=== PATIENT | male | born 1980 | race Caucasian/White ===

== ENCOUNTER 2019-02-07 11:07 | Emergency (ER) | payer OTHER ==
[~2019-02-07] VITALS: Ht 160 cm; Wt 71.7 kg
[2019-02-07] MEDS ORDERED: LORA1SY PO (11:22)
[2019-02-07] MEDS ORDERED: LOSA50 PO (11:22)
[2019-02-07] MEDS ORDERED: Flonase 0.05% N16 GM (11:22)
[2019-02-07] MEDS ORDERED: ALBU90OI INH (11:22)
[2019-02-07 11:58] LABS: BASOPHILS ABSOLUTE AUTO 0.06 K/mm3 (0.00-0.23); BASOPHILS PERCENT AUTO 0 % (0-2); EOSINOPHILS PERCENT AUTO 0 % (0-6); Hematocrit 44.8 % (37.0-53.0); Hemoglobin 16.3 g/dL (13.5-17.5); IMMATURE GRAN ABSOLUTE AUTO 0.12 K/mm3 (0.00-0.10); IMMATURE GRAN PERCENT AUTO 1 % (0-1); LYMPHOCYTES ABSOLUTE AUTO 1.72 K/mm3 (0.84-5.20); LYMPHOCYTES PERCENT AUTO 7 % (21-46); MONOCYTES ABSOLUTE AUTO 1.91 K/mm3 (0.16-1.47); MONOCYTES PERCENT AUTO 8 % (4-13); Mean Corpuscular HGB 30.8 pg (26.0-34.0); Mean Corpuscular HGB Conc 36.4 g/dL (31.5-36.5); Mean Corpuscular Volume 85 fL (80-100); Mean Platelet Volume 9.4 fL (9.1-12.4); NEUTROPHILS ABSOLUTE AUTO 19.67 K/mm3 (1.96-9.15); NEUTROPHILS PERCENT AUTO 84 % (41-73); Platelet Count 323 K/mm3 (150-400); RDW Coefficient Variation 11.6 % (11.7-14.2); RDW Standard Deviation 35.6 fL (35.1-46.3); White Blood Cell Count 23.48 K/mm3 (4.00-11.30)
[2019-02-07 12:17] LABS: Alanine Aminotransfer (ALT/SGP 25 U/L (12-78); Albumin, Blood 3.8 g/dL (3.4-5.0); Albumin/Globulin Ratio 0.8 (0.8-1.8); Alk Phos 106 U/L (50-136); Anion Gap 9 mmol/L (6-16); Aspartate Aminotrans (AST/SGOT 24 U/L (12-37); Bilirubin, Total 0.7 mg/dL (0.1-1.0); Blood Urea Nitrogen 11 mg/dL (8-24); Bun/Creatinine Ratio 12.8 (12.0-20.0); CO2, Blood 24 mmol/L (21-32); Calcium, Blood 9.7 mg/dL (8.5-10.1); Chloride, Blood 106 mmol/L (98-108); Creatinine, Blood 0.86 mg/dL (0.60-1.20); Globulin, Blood 4.9 g/dL (2.2-4.0); Glomerular Filtration Rate >60 (60-); Glucose, Blood 116 mg/dL (70-99); Potassium, Blood 3.5 mmol/L (3.5-5.5); Sodium, Blood 139 mmol/L (136-145); Total Protein, Blood 8.7 g/dL (6.4-8.2)
[2019-02-07] MEDS ORDERED: CEFP200 PO (13:04)
[2019-02-07] MEDS ORDERED: ALBU2.5V5 NEB (13:04)
== END 2019-02-07 13:09 | disposition home or self-care (01) ==
LOC: ER 11:07
PROVIDERS: Physician Assistant
DX: J18.8 Other pneumonia, unspecified organism (principal); Z79.899 Other long term (current) drug therapy; F17.290 Nicotine dependence, other tobacco product, uncomplicated
CPT/HCPCS: 36415; 71046; 71260; 80053; 83605; 85025; 87070; 87205; 94640; 96374-59; 99284-25; J1885; J7120; Q9967

== ENCOUNTER 2019-02-16 22:55 | Inpatient (IN) | payer OTHER ==
[~2019-02-16] VITALS: Ht 160 cm; Wt 69.0 kg
[~2019-02-16 22:55] MED LIST: ALBU2.5V5 NEB; ALBU90OI INH; CEFP200 PO; Flonase 0.05% N16 GM; LORA1SY PO; LOSA50 PO
[2019-02-16 23:44] LABS: BASOPHILS ABSOLUTE AUTO 0.05 K/mm3 (0.00-0.23); BASOPHILS PERCENT AUTO 0 % (0-2); EOSINOPHILS ABSOLUTE AUTO 0.11 K/mm3 (0.00-0.68); EOSINOPHILS PERCENT AUTO 1 % (0-6); Hematocrit 34.4 % (37.0-53.0); IMMATURE GRAN ABSOLUTE AUTO 0.12 K/mm3 (0.00-0.10); IMMATURE GRAN PERCENT AUTO 1 % (0-1); LYMPHOCYTES ABSOLUTE AUTO 2.17 K/mm3 (0.84-5.20); LYMPHOCYTES PERCENT AUTO 13 % (21-46); MONOCYTES ABSOLUTE AUTO 1.05 K/mm3 (0.16-1.47); MONOCYTES PERCENT AUTO 6 % (4-13); Mean Corpuscular HGB 29.8 pg (26.0-34.0); Mean Corpuscular HGB Conc 34.9 g/dL (31.5-36.5); Mean Corpuscular Volume 85 fL (80-100); Mean Platelet Volume 8.7 fL (9.1-12.4); NEUTROPHILS ABSOLUTE AUTO 13.16 K/mm3 (1.96-9.15); NEUTROPHILS PERCENT AUTO 79 % (41-73); Platelet Count 442 K/mm3 (150-400); RDW Coefficient Variation 11.3 % (11.7-14.2); RDW Standard Deviation 35.7 fL (35.1-46.3); Red Blood Cell Count 4.03 M/mm3 (4.30-5.90); White Blood Cell Count 16.66 K/mm3 (4.00-11.30)
[2019-02-17 00:07] LABS: Alanine Aminotransfer (ALT/SGP 40 U/L (12-78); Albumin, Blood 2.9 g/dL (3.4-5.0); Albumin/Globulin Ratio 0.7 (0.8-1.8); Alk Phos 105 U/L (50-136); Anion Gap 7 mmol/L (6-16); Aspartate Aminotrans (AST/SGOT 20 U/L (12-37); Bilirubin, Total 0.3 mg/dL (0.1-1.0); Blood Urea Nitrogen 10 mg/dL (8-24); Bun/Creatinine Ratio 12.8 (12.0-20.0); CO2, Blood 27 mmol/L (21-32); Calcium, Blood 8.5 mg/dL (8.5-10.1); Chloride, Blood 108 mmol/L (98-108); Creatinine, Blood 0.78 mg/dL (0.60-1.20); Globulin, Blood 4.4 g/dL (2.2-4.0); Glomerular Filtration Rate >60 (60-); Glucose, Blood 101 mg/dL (70-99); Potassium, Blood 3.3 mmol/L (3.5-5.5); Sodium, Blood 142 mmol/L (136-145); Total Protein, Blood 7.3 g/dL (6.4-8.2); Troponin I <0.015 ng/mL (0.000-0.040)
[2019-02-17 06:14] LABS: Adenovirus Not Detected (NOT DETECT); Bordetella pertussis Not Detected (NOT DETECT); Chlamydophila pneumoniae Not Detected (NOT DETECT); Coronavirus 229E Not Detected (NOT DETECT); Coronavirus HKU1 Not Detected (NOT DETECT); Coronavirus NL63 Not Detected (NOT DETECT); Coronavirus OC43 Not Detected (NOT DETECT); Human Metapneumovirus Not Detected (NOT DETECT); Human Rhinovirus/Enterovirus Not Detected (NOT DETECT); Influenza A Not Detected (NOT DETECT); Influenza A/2009-H1 Not Detected (NOT DETECT); Influenza A/H1 Not Detected (NOT DETECT); Influenza A/H3 Not Detected (NOT DETECT); Influenza B Not Detected (NOT DETECT); Mycoplasma pneumoniae Not Detected (NOT DETECT); Parainfluenza Virus 1 Not Detected (NOT DETECT); Parainfluenza Virus 2 Not Detected (NOT DETECT); Parainfluenza Virus 3 Not Detected (NOT DETECT); Parainfluenza Virus 4 Not Detected (NOT DETECT); Respiratory Syncytial Virus Not Detected (NOT DETECT)
--- NOTE | 2019-02-17 18:01 | NUR ---
SHIFT SUMMARY. A&OX4, INDEPENDENT IN ROOM. PT DENIES N/V, SOB. LUNGS COARSE THROUGHOUT WITH EXPIRATORY WHEEZES. ON RA. PT WITH COPIOUS YELLOW SPUTUM PRODUCTION, PT REPORTS THAT PRODUCTION HAS SLOWED THIS AFTERNOON. CONTINUES WITH NEBS, IV ANTIBIOTICS. PT TOLERATING WELL. NO NEW CHANGES.
[2019-02-17 23:38] LABS: Vancomycin, Trough 11.6 ug/mL (5.0-10.0)
--- NOTE | 2019-02-18 06:00 | NUR ---
*SHIFT SUMMARY* PATIENT IS ALERT AND ORIENTED. SLEPT WELL THROUGHOUT THE NIGHT. REFUSED LAB DRAW THIS AM, PT STATED HE WAS TIRED OF BEING POKED. VITALS STABLE. SLEPT WELL THROUGHT THE NIGHT. NO OTHER CHANGES THROUGHOUT THE NIGHT.
[2019-02-18 08:30] LABS: BASOPHILS ABSOLUTE AUTO 0.04 K/mm3 (0.00-0.23); BASOPHILS PERCENT AUTO 0 % (0-2); EOSINOPHILS ABSOLUTE AUTO 0.01 K/mm3 (0.00-0.68); EOSINOPHILS PERCENT AUTO 0 % (0-6); Hematocrit 39.1 % (37.0-53.0); Hemoglobin 13.5 g/dL (13.5-17.5); IMMATURE GRAN ABSOLUTE AUTO 0.32 K/mm3 (0.00-0.10); IMMATURE GRAN PERCENT AUTO 1 % (0-1); LYMPHOCYTES ABSOLUTE AUTO 1.15 K/mm3 (0.84-5.20); LYMPHOCYTES PERCENT AUTO 5 % (21-46); MONOCYTES ABSOLUTE AUTO 0.44 K/mm3 (0.16-1.47); MONOCYTES PERCENT AUTO 2 % (4-13); Mean Corpuscular HGB 29.7 pg (26.0-34.0); Mean Corpuscular HGB Conc 34.5 g/dL (31.5-36.5); Mean Corpuscular Volume 86 fL (80-100); Mean Platelet Volume 8.9 fL (9.1-12.4); NEUTROPHILS PERCENT AUTO 92 % (41-73); Platelet Count 543 K/mm3 (150-400); RDW Coefficient Variation 11.4 % (11.7-14.2); RDW Standard Deviation 35.8 fL (35.1-46.3); Red Blood Cell Count 4.55 M/mm3 (4.30-5.90); White Blood Cell Count 24.66 K/mm3 (4.00-11.30)
[2019-02-18 08:51] LABS: Anion Gap 5 mmol/L (6-16); Blood Urea Nitrogen 16 mg/dL (8-24); Bun/Creatinine Ratio 21.4 (12.0-20.0); CO2, Blood 26 mmol/L (21-32); Calcium, Blood 9.1 mg/dL (8.5-10.1); Chloride, Blood 110 mmol/L (98-108); Creatinine, Blood 0.75 mg/dL (0.60-1.20); Glomerular Filtration Rate >60 (60-); Glucose, Blood 131 mg/dL (70-99); Sodium, Blood 141 mmol/L (136-145)
--- NOTE | 2019-02-18 17:00 | NUR ---
SUMMARY PT UP VISITING WITH HIS FRIEND, COOPERATIVE WITH CARE, INDEP IN ROOM, DENIES SOB, LOOSE COUGH, VSS, NO ACUTE CHANGES, WILL CONT TO MONITOR
[2019-02-19 05:46] LABS: Hematocrit 35.4 % (37.0-53.0); Mean Corpuscular HGB 29.6 pg (26.0-34.0); Mean Corpuscular HGB Conc 33.9 g/dL (31.5-36.5); Mean Corpuscular Volume 87 fL (80-100); Platelet Count 486 K/mm3 (150-400); RDW Coefficient Variation 11.6 % (11.7-14.2); RDW Standard Deviation 37.3 fL (35.1-46.3); Red Blood Cell Count 4.05 M/mm3 (4.30-5.90); White Blood Cell Count 23.55 K/mm3 (4.00-11.30)
[2019-02-19 06:05] LABS: Anion Gap 2 mmol/L (6-16); Blood Urea Nitrogen 18 mg/dL (8-24); Bun/Creatinine Ratio 23.7 (12.0-20.0); CO2, Blood 29 mmol/L (21-32); Calcium, Blood 8.4 mg/dL (8.5-10.1); Chloride, Blood 110 mmol/L (98-108); Creatinine, Blood 0.76 mg/dL (0.60-1.20); Glomerular Filtration Rate >60 (60-); Glucose, Blood 138 mg/dL (70-99); Potassium, Blood 4.2 mmol/L (3.5-5.5); Sodium, Blood 141 mmol/L (136-145)
[2019-02-19 06:06] LABS: BAND PERCENT MAN 1 % (0-8); BASOPHILS PERCENT MAN 0 % (0-2); EOSINOPHILS PERCENT MAN 0 % (0-6); LYMPHOCYTES ABSOLUTE MAN 1.41 K/mm3 (0.84-5.20); LYMPHOCYTES PERCENT MAN 6 % (21-46); METAMYELOCYTE ABSOLUTE MAN 0.23 K/mm3 (0.00-0.00); METAMYELOCYTE PERCENT MAN 1 % (0-0); MONOCYTES PERCENT MAN 3 % (4-13); MYELOCYTE ABSOLUTE MAN 0.23 K/mm3 (0.00-0.00); MYELOCYTE PERCENT MAN 1 % (0-0); NEUTROPHILS ABSOLUTE MAN 20.95 K/mm3 (1.96-9.15); SEG NEUTROPHILS PERCENT MAN 88 % (41-73); TOTAL CELLS COUNTED 100
--- NOTE | 2019-02-19 07:45 | NUR ---
SHIFT SUMMARY PT AWAKE ON/OFF T/O NIGHT DUE TO ADMINISTRATION OF IV ANTIBIOTICS. NO ACUTE CHANGES THIS SHIFT. DENIES PAIN OR NAUSEA. REPORTS HIS BREATHING "IS MUCH BETTER," & STATES HIS MUCUS IS NOW CLEAR INSTEAD OF YELLOW/GREEN, SPO2 >90% ON RA. INDEPENDENT IN ROOM & CALL LIGHT IN REACH.
--- NOTE | 2019-02-19 18:16 | NUR ---
SUMMARY PT SITTING UP IN BED EATING DINNER AND WATCHING TV, PT HAS BEEN INDEPENDENT IN THE ROOM, COOPERATIVE WITH CARE, PT DENIES ANY SOB, REPORTS SPUTUM LESS GREEN, VSS, NO ACUTE CHANGES, WILL CONT TO MONITOR
[2019-02-19 23:39] LABS: Vancomycin, Trough 14.8 ug/mL (5.0-10.0)
--- NOTE | 2019-02-20 06:03 | NUR ---
SHIFT SUMMARY PT SLEPT WELL T/O NIGHT. NO ACUTE CHANGES THIS SHIFT. DENIES PAIN, NAUSEA OR SOB. REPORTS MUCUS IS CLEAR & LESS GREEN, DID ASK FOR COUGH MEDICATION LAST NIGHT & WAS MEDICATED 1X W/ROBITUSSIN DM. PT PLEASANT, COOPERATIVE W/CARE & INDEPENDENT IN ROOM. CALL LIGHT IS IN REACH.
[2019-02-20 13:06] LABS: QUANTIFERON MITOGEN VALUE 4.51 IU/mL (.); QUANTIFERON NIL VALUE 0.02 IU/mL (.); QUANTIFERON TB1 AG VALUE 0.05 IU/mL (.); QUANTIFERON TB2 AG VALUE 0.02 IU/mL (.); QUANTIFERON-TB GOLD PLUS Negative (Negative)
--- NOTE | 2019-02-20 18:39 | NUR ---
SHIFT SUMMARY POSSIBLE D/C OVER THE WEEKEND. HE CALM AND COOPERATIVE THROUGHOUT THE SHIFT. EATING AND DRINKING WELL. HE HAS GONE OUTSIDE TO "GET SOME FRESH AIR".
[2019-02-21 00:08] LABS: HIV SCREEN 4TH GENERATION WRFX Non Reactive (Non Reactive)
[2019-02-21 05:29] LABS: Hematocrit 38.3 % (37.0-53.0); Hemoglobin 13.4 g/dL (13.5-17.5); Mean Corpuscular Volume 86 fL (80-100); Mean Platelet Volume 8.9 fL (9.1-12.4); NRBC ABSOLUTE 0.03 K/mm3 (0.00-0.02); NRBC Auto 0.1 /100 WBC (0.0-0.2); Platelet Count 584 K/mm3 (150-400); RDW Coefficient Variation 11.4 % (11.7-14.2); RDW Standard Deviation 35.2 fL (35.1-46.3); Red Blood Cell Count 4.46 M/mm3 (4.30-5.90); White Blood Cell Count 20.11 K/mm3 (4.00-11.30)
[2019-02-21 06:09] LABS: BAND PERCENT MAN 2 % (0-8); BASOPHILS PERCENT MAN 0 % (0-2); EOSINOPHILS PERCENT MAN 0 % (0-6); LYMPHOCYTES PERCENT MAN 5 % (21-46); METAMYELOCYTE PERCENT MAN 1 % (0-0); MONOCYTES PERCENT MAN 5 % (4-13); MYELOCYTE PERCENT MAN 3 % (0-0); NEUTROPHILS ABSOLUTE MAN 17.29 K/mm3 (1.96-9.15); SEG NEUTROPHILS PERCENT MAN 84 % (41-73); TOTAL CELLS COUNTED 100
[2019-02-21 16:28] LABS: Creatinine, Blood 0.79 mg/dL (0.60-1.20); Vancomycin, Trough 16.3 ug/mL (5.0-10.0)
--- NOTE | 2019-02-21 18:23 | NUR ---
SHIFT SUMMARY: NO ACUTE CHANGES TO REPORT THIS SHIFT. PT A&O; CALM AND COOPERATIVE WITH CARE; INDEPENDENT IN ROOM. ISOLATION D/C'd THIS SHIFT-TB RULED-OUT. IV ABX CONTINUING. WCTM.
[2019-02-22 05:29] LABS: Hematocrit 38.7 % (37.0-53.0); Hemoglobin 13.4 g/dL (13.5-17.5); Mean Corpuscular HGB 30.1 pg (26.0-34.0); Mean Corpuscular HGB Conc 34.6 g/dL (31.5-36.5); Mean Corpuscular Volume 87 fL (80-100); NRBC ABSOLUTE 0.02 K/mm3 (0.00-0.02); NRBC Auto 0.1 /100 WBC (0.0-0.2); Platelet Count 530 K/mm3 (150-400); RDW Coefficient Variation 11.5 % (11.7-14.2); RDW Standard Deviation 36.4 fL (35.1-46.3); Red Blood Cell Count 4.45 M/mm3 (4.30-5.90); White Blood Cell Count 25.18 K/mm3 (4.00-11.30)
[2019-02-22 06:01] LABS: BAND PERCENT MAN 2 % (0-8); BASOPHILS PERCENT MAN 0 % (0-2); EOSINOPHILS PERCENT MAN 0 % (0-6); LYMPHOCYTES ABSOLUTE MAN 1.76 K/mm3 (0.84-5.20); LYMPHOCYTES PERCENT MAN 7 % (21-46); METAMYELOCYTE PERCENT MAN 2 % (0-0); MONOCYTES ABSOLUTE MAN 1.25 K/mm3 (0.16-1.47); MONOCYTES PERCENT MAN 5 % (4-13); MYELOCYTE ABSOLUTE MAN 0.75 K/mm3 (0.00-0.00); MYELOCYTE PERCENT MAN 3 % (0-0); NEUTROPHILS ABSOLUTE MAN 20.89 K/mm3 (1.96-9.15); SEG NEUTROPHILS PERCENT MAN 81 % (41-73); TOTAL CELLS COUNTED 100
[2019-02-22] MEDS ORDERED: DOXY100 PO (12:45)
[2019-02-22] MEDS ORDERED: Augmentin 875-1 EACH PO (12:45)
[2019-02-22] MEDS ORDERED: PRED10 PO (12:46)
--- NOTE | 2019-02-22 13:20 | NUR ---
REVIEW D'C INSTRUCTIONS. AWARE TO MAKE F/U APPT W/DR. CERON AND DR BILLINGS. AWARE 3 RX'S AT [facility]. ANSWER ALL QUESTIONS. WAITING FOR MD NOTE. HAS BEEN AMBULATORY OFTEN TO SMOKE .
[2019-02-24 10:08] LABS: HISTOPLASMA GAL'MANNAN AG SER <0.5 (<0.5 ng/mL)
== END 2019-02-22 13:28 | disposition home or self-care (01) | DRG 195 ==
LOC: ER 22:55 → MEDS 02-17 02:21 → ENPENDDIS 02-22 11:32 → MEDS 02-22 13:28
PROVIDERS: Emergency Medicine; Hospitalist; Internal Medicine Infectious Disease; ADMIT Internal Medicine
DX: J18.1 Lobar pneumonia, unspecified organism (principal); F17.210 Nicotine dependence, cigarettes, uncomplicated; E87.6 Hypokalemia; J45.909 Unspecified asthma, uncomplicated; I10 Essential (primary) hypertension
CPT/HCPCS: 36415; 36416; 71046; 76770; 80048; 80053; 80202; 82565; 83605; 84484; 85025; 86403; 86480; 86635; 87040; 87070; 87205; 87385; 87389; 87486; 87581; 87633; 87798; 88108; 88312; 93005; 93010; 94640; 94760; 96365; 96367; 99284-25; J1956; J2543; J2920; J2930; J3370; J3480; J7030; J7040; J7050

== ENCOUNTER 2021-05-26 20:44 | Emergency (ER) | payer OTHER ==
[~2021-05-26] VITALS: Ht 160 cm; Wt 68.0 kg
[~2021-05-26 20:44] MED LIST changes: +Augmentin 875-1 EACH PO; +DOXY100 PO; +PRED10 PO
== END 2021-05-27 04:28 | disposition home or self-care (01) ==
LOC: ER 20:44
DX: U07.1 COVID-19 (principal); F17.200 Nicotine dependence, unspecified, uncomplicated; J45.909 Unspecified asthma, uncomplicated
CPT/HCPCS: 99283

== ENCOUNTER 2021-12-20 06:29 | Emergency (ER) | payer OTHER ==
[~2021-12-20] VITALS: Ht 160 cm; Wt 68.0 kg
[2021-12-20 07:41] LABS: Influenza A, PCR NEGATIVE (NEGATIVE); Influenza B, PCR NEGATIVE (NEGATIVE); Resp Syncytial Virus, PCR NEGATIVE (NEGATIVE); SARS-Cov-2 (COVID-19) PCR, MMC NEGATIVE (NEGATIVE)
[2021-12-20] MEDS ORDERED: Zithromax250 MG PO (07:54)
[2021-12-20] MEDS ORDERED: GUAI200 PO (07:54)
== END 2021-12-20 08:07 | disposition home or self-care (01) ==
LOC: ER 06:29
PROVIDERS: Family Medicine
DX: J44.1 Chronic obstructive pulmonary disease with (acute) exacerbation (principal); Z20.822 Contact with and (suspected) exposure to COVID-19; F17.210 Nicotine dependence, cigarettes, uncomplicated
CPT/HCPCS: 0241U; 71046; 93005; 93010; 99285-25

== ENCOUNTER 2022-09-03 15:03 | Emergency (ER) | payer OTHER ==
[~2022-09-03] VITALS: Ht 160 cm; Wt 63.5 kg
[~2022-09-03 15:03] MED LIST changes: +Amoxicillin500 MG PO; +GUAI200 PO; +IBUP600 PO; +Zithromax250 MG PO
[2022-09-03 16:25] LABS: Influenza A, PCR NEGATIVE (NEGATIVE); Influenza B, PCR NEGATIVE (NEGATIVE); Resp Syncytial Virus, PCR NEGATIVE (NEGATIVE); SARS-Cov-2 (COVID-19) PCR, MMC NEGATIVE (NEGATIVE)
[2022-09-03] MEDS ORDERED: Zithromax250 MG PO (17:09)
== END 2022-09-03 17:21 | disposition home or self-care (01) ==
LOC: ER 15:03
PROVIDERS: Physician Assistant
DX: J18.9 Pneumonia, unspecified organism (principal); F17.210 Nicotine dependence, cigarettes, uncomplicated; Z20.822 Contact with and (suspected) exposure to COVID-19
CPT/HCPCS: 0241U; 71045; A9270

== ENCOUNTER 2022-09-06 16:23 | Emergency (ER) | payer OTHER ==
[~2022-09-06] VITALS: Ht 160 cm; Wt 63.5 kg
[2022-09-06] MEDS ORDERED: HYDR1TAB94 PO (19:31)
== END 2022-09-06 20:10 | disposition home or self-care (01) ==
LOC: ER 16:23
DX: S62.333A Displaced fracture of neck of third metacarpal bone, left hand, initial encounter for closed fracture (principal); S62.335A Displaced fracture of neck of fourth metacarpal bone, left hand, initial encounter for closed fracture; J45.909 Unspecified asthma, uncomplicated; F17.200 Nicotine dependence, unspecified, uncomplicated; W01.0XXA Fall on same level from slipping, tripping and stumbling without subsequent striking against object, initial encounter
CPT/HCPCS: 73110; 73130

== ENCOUNTER 2023-02-16 09:50 | Emergency (ER) | payer OTHER ==
[~2023-02-16] VITALS: Ht 160 cm; Wt 68.0 kg
[~2023-02-16 09:50] MED LIST changes: +HYDR1TAB94 PO
[2023-02-16 09:54] VITALS: BP 126/93
[2023-02-16] MEDS ORDERED: ATROVENT HFA12.9 GM INH (13:08)
[2023-02-16] MEDS ORDERED: AMOCLA875 PO (13:08)
[2023-02-16] MEDS ORDERED: PRED20 PO (13:08)
[2023-02-16] MEDS ORDERED: ALBU90OI INH (13:08)
== END 2023-02-16 13:54 | disposition home or self-care (01) ==
LOC: ER 09:50
DX: K04.7 Periapical abscess without sinus (principal); J45.901 Unspecified asthma with (acute) exacerbation; Z79.899 Other long term (current) drug therapy; F17.200 Nicotine dependence, unspecified, uncomplicated
CPT/HCPCS: 10060; 71046; 94640; 94644; 94664; 99283-25; A9270; J7512

== ENCOUNTER 2023-06-12 13:42 | Emergency (ER) | payer OTHER ==
[~2023-06-12] VITALS: Ht 160 cm; Wt 63.5 kg
[~2023-06-12 13:42] MED LIST changes: +AMOCLA875 PO; +ATROVENT HFA12.9 GM INH; +CEPH500 PO; +PRED20 PO
[2023-06-12 13:48] VITALS: BP 143/98
[2023-06-12] MEDS ORDERED: SULTRIDS PO (13:52)
[2023-06-12] MEDS ORDERED: CEPH500 PO (13:52)
== END 2023-06-12 13:52 | disposition home or self-care (01) ==
LOC: ER 13:42
DX: L03.114 Cellulitis of left upper limb (principal); I10 Essential (primary) hypertension; J45.909 Unspecified asthma, uncomplicated; F17.290 Nicotine dependence, other tobacco product, uncomplicated
CPT/HCPCS: 99282

== ENCOUNTER 2023-07-06 22:00 | Inpatient (IN) | payer OTHER ==
[~2023-07-06] VITALS: Ht 157.5 cm; Wt 58.6 kg
[~2023-07-06 22:00] MED LIST changes: +SULTRIDS PO
[2023-07-06 22:48] LABS: BASOPHILS ABSOLUTE AUTO 0.07 K/mm3 (0.00-0.23); BASOPHILS PERCENT AUTO 0 % (0-2); EOSINOPHILS ABSOLUTE AUTO 0.07 K/mm3 (0.00-0.68); EOSINOPHILS PERCENT AUTO 0 % (0-6); Hematocrit 39.7 % (37.0-53.0); IMMATURE GRAN ABSOLUTE AUTO 0.09 K/mm3 (0.00-0.10); IMMATURE GRAN PERCENT AUTO 1 % (0-1); LYMPHOCYTES ABSOLUTE AUTO 1.37 K/mm3 (0.84-5.20); LYMPHOCYTES PERCENT AUTO 8 % (21-46); MONOCYTES PERCENT AUTO 9 % (4-13); Mean Corpuscular HGB 29.2 pg (26.0-34.0); Mean Corpuscular HGB Conc 35.3 g/dL (31.5-36.5); Mean Corpuscular Volume 83 fL (80-100); Mean Platelet Volume 9.1 fL (9.1-12.4); NEUTROPHILS ABSOLUTE AUTO 15.05 K/mm3 (1.96-9.15); NEUTROPHILS PERCENT AUTO 82 % (41-73); Platelet Count 286 K/mm3 (150-400); RDW Coefficient Variation 12.3 % (11.7-14.2); RDW Standard Deviation 37.5 fL (35.1-46.3); Red Blood Cell Count 4.79 M/mm3 (4.30-5.90); White Blood Cell Count 18.25 K/mm3 (4.00-11.30)
[2023-07-06 23:18] LABS: Alanine Aminotransfer (ALT/SGP 37 U/L (12-78); Albumin/Globulin Ratio 0.7 (0.8-1.8); Alk Phos 125 U/L (50-136); Anion Gap 5 mmol/L (6-16); Aspartate Aminotrans (AST/SGOT 32 U/L (12-37); Bilirubin, Total 0.6 mg/dL (0.1-1.0); Blood Urea Nitrogen 7 mg/dL (8-24); Bun/Creatinine Ratio 9.7 (12.0-20.0); C-REACTIVE PROTEIN, EXT RANGE >19.000 mg/dL (0.000-0.300); CO2, Blood 26 mmol/L (21-32); Calcium, Blood 8.6 mg/dL (8.5-10.1); Chloride, Blood 102 mmol/L (98-108); Creatinine, Blood 0.73 mg/dL (0.60-1.20); Globulin, Blood 4.5 g/dL (2.2-4.0); Glomerular Filtration Rate 115 (60-); Glucose, Blood 104 mg/dL (70-99); Potassium, Blood 3.5 mmol/L (3.5-5.5); Sodium, Blood 133 mmol/L (136-145); Total Protein, Blood 7.5 g/dL (6.4-8.2)
--- NOTE | 2023-07-07 03:20 | NUR ---
PT HERE VIA WC FROM ER. PT ABLE TO STAND, NWB ON LEFT LEG, AND PIVOT TO MEDICAL FLOOR BED. ASHLEY PATEL CLEANED LEFT KNEE WOUND, AND DRESSED IT WITH A MEPILEX DRESSING, PICTURES TAKEN, AND RED AREA MARKED. PT IS SLEEPING DURING MOST OF ASSESSMENT, WOULD WAKE UP FOR BRIEF MOMENT OF QUESTIONING, THEN DRIFT OFF BACK TO SLEEP. PT REPORTS HE IS HOMELESS. CALL LIGHT WITHIN REACH. FLUIDS AT BEDSIDE. BED ALARM ON FOR PT SAFETY. URINAL AT BEDSIDE - WILL SEND FOR URINE PER ORDER. WILL CONTINUE TO MONITOR UNTIL AM SHIFT.
[2023-07-07 03:32] VITALS: BP 141/97
--- NOTE | 2023-07-07 04:47 | NUR ---
SHIFT SUMMARY - SEE PREVIOUS NOTE. NO CHANGES FROM PREVIOUS DOCUMENTATION.
--- NOTE | 2023-07-07 04:48 | NUR ---
SHIFT SUMMARY - I DID TALK THE PT ABOUT FIRE SAFETY, DENIED ANY ITEMS IN HIS BELONGINGS. PT REPORTS THEY ALREADY WENT THROUGH HIS BELONGINGS DOWN IN ED, AND SOME OF HIS ITEMS ARE BEING STORED IN SECURITY.
[2023-07-07 07:19] VITALS: BP 134/108
[2023-07-07 08:45] LABS: Hematocrit 40.2 % (37.0-53.0); Hemoglobin 14.2 g/dL (13.5-17.5); Mean Corpuscular HGB 29.4 pg (26.0-34.0); Mean Corpuscular HGB Conc 35.3 g/dL (31.5-36.5); Mean Corpuscular Volume 83 fL (80-100); Mean Platelet Volume 9.3 fL (9.1-12.4); Platelet Count 291 K/mm3 (150-400); RDW Coefficient Variation 12.3 % (11.7-14.2); RDW Standard Deviation 37.7 fL (35.1-46.3); Red Blood Cell Count 4.83 M/mm3 (4.30-5.90)
[2023-07-07 09:10] LABS: Bun/Creatinine Ratio 9.5 (12.0-20.0); Calcium, Blood 8.9 mg/dL (8.5-10.1); Creatinine, Blood 0.74 mg/dL (0.60-1.20); Potassium, Blood 3.7 mmol/L (3.5-5.5)
[2023-07-07 09:23] LABS: U Amphetamine Screen DETECTED; U Barbituate Screen Not Detected; U Benzodiazapine Screen Not Detected; U Buprenorphine Screen Not Detected; U Cannabinoids Screen DETECTED; U Cocaine Screen Not Detected; U Methadone Screen Not Detected; U Methamphetamine Screen DETECTED; U Opiates Screen Not Detected; U Oxycodone Screen Not Detected; U Phencyclidine Screen Not Detected; U Propoxyphene Screen Not Detected
--- NOTE | 2023-07-07 13:41 | NUR ---
PATIENT DENIES HAVING A IGNITION DEVICE ON HIS PERSON, DENIES CIGARRETTES AND VAPE IN HIS BELONGING, PATIENT DOES ANSWER YES WHEN ASKED IF HE SMOKES
[2023-07-07 16:06] VITALS: BP 150/95
--- NOTE | 2023-07-07 18:40 | NUR ---
NO ACUTE CHANGES, DRESSING CHANGES STARTED, PATIENT TOLERATES POORLY, DRSG CHANGES TO BE DONE TWICE EACH SHIFT WITH MUPRICON OINTMENT APPLIED, 4X4, ABD AND MORALES WRAP, DR BROTHERS ASKING FOR TOMORROW AM'S DRESSING CHANGE AT 0600 BE HELD UNTIL SHE IS HERE FOR THE DRESSING CHANGE, PATIENT DROWSY, LETHARGIC, AND LABILE, DEMANDING FOR NEEDS, USES CALL LIGHT, BSU INDEPEDENTLY
[2023-07-07 20:14] VITALS: BP 131/88
[2023-07-07 23:27] LABS: Creatinine, Blood 0.78 mg/dL (0.60-1.20)
[2023-07-08 04:59] VITALS: BP 145/91
--- NOTE | 2023-07-08 05:10 | NUR ---
SHIFT SUMMARY PT IS A&O4, 1 ASSIST TO COMMMODE NON WEIGHT BEARING LEFT LEG, PT IS USING URINAL, RA, VSS, AM DRESSING CHANGE HELD PER MD, NO COMPLIANTS OF PAIN OVERNIGHT, CONTINUE POC
[2023-07-08 06:10] LABS: Mean Corpuscular HGB 29.7 pg (26.0-34.0); Mean Corpuscular HGB Conc 35.1 g/dL (31.5-36.5); Mean Corpuscular Volume 85 fL (80-100); Mean Platelet Volume 9.3 fL (9.1-12.4); Platelet Count 289 K/mm3 (150-400); RDW Coefficient Variation 12.2 % (11.7-14.2); RDW Standard Deviation 37.3 fL (35.1-46.3); Red Blood Cell Count 4.38 M/mm3 (4.30-5.90); White Blood Cell Count 11.75 K/mm3 (4.00-11.30)
[2023-07-08 06:40] LABS: Bun/Creatinine Ratio 18.6 (12.0-20.0); Calcium, Blood 8.6 mg/dL (8.5-10.1); Creatinine, Blood 0.81 mg/dL (0.60-1.20); Potassium, Blood 3.9 mmol/L (3.5-5.5)
[2023-07-08 07:25] VITALS: BP 161/99
--- NOTE | 2023-07-08 10:01 | NUR ---
DRESSING CHANGE CHANGED PT'S DRESSING, APPLIED MUPRIOCON OINTMENT, 4X4 GAUZE, ABD, AND MORALES WRAP. SWELLING, REDNESS, PALE/YELLOW DISCHARGE AND BLOOD NOTED.
[2023-07-08 16:16] VITALS: BP 156/108
--- NOTE | 2023-07-08 18:42 | NUR ---
SHIFT SUMMARY PT DROWSY, BUT RESPONDS TO LOUD VOICES AND IS ORIENTED X4. PT IS 1 NURSE ASSIST, TOLERATING PO, VOIDING, DENIES PAIN, VSS, AND HAS HAD 2 DRESSING CHANGES T/O SHIFT. REDNESS, SWELLING, AND YELLOW/CLEAR DRAINAGE NOTED. WILL CONT TO MONITOR FOR CHANGES UNTIL END OF SHIFT AND REPORT TO THE ONCOMING RN.
[2023-07-08 19:26] VITALS: BP 155/115
--- NOTE | 2023-07-08 22:06 | NUR ---
PT REFUSED TELE MONITOR APPLICATION AFTER TAKING SHOWER. NOTIFIED [employer].
[2023-07-09 00:23] LABS: Vancomycin, Trough 8.9 ug/mL (5.0-10.0)
--- NOTE | 2023-07-09 03:54 | NUR ---
SHIFT SUMMARY. SHIFT HAS BEEN MOSTLY UNREMARKABLE. PT AOX4, MOSTLY COOPERATIVE WITH CARE. HAS BEEN PARTICULAR WITH CARE RECEIVED, REFUSED ONE 2100 MEDICATION, REFUSED TELE PAD PLACEMENT, REFUSED LAB DRAW UNTIL I WAS ABLE TO EDUCATE ON NEED. NO PAIN REPORTED THIS SHIFT. PT HAS BEEN CALM ALTHOUGH SOMEWHAT WITHDRAWN/FLAT. DRESSING CHANGED ONCE THUS FAR THIS SHIFT, WILL CHANGE ONCE MORE WITH 0600 OINTMENT APPLICATION. USES URINAL INDEPENDENTLY, CALLS APPROPRIATELY FOR ASSISTANCE NEEDED. BED LOCKED IN LOWEST POSITION. CALL LIGHT LEFT WITHIN REACH.
[2023-07-09 04:38] VITALS: BP 146/105
[2023-07-09 05:21] LABS: BASOPHILS ABSOLUTE AUTO 0.05 K/mm3 (0.00-0.23); BASOPHILS PERCENT AUTO 1 % (0-2); EOSINOPHILS ABSOLUTE AUTO 0.36 K/mm3 (0.00-0.68); EOSINOPHILS PERCENT AUTO 3 % (0-6); Hematocrit 36.6 % (37.0-53.0); Hemoglobin 12.7 g/dL (13.5-17.5); IMMATURE GRAN ABSOLUTE AUTO 0.06 K/mm3 (0.00-0.10); IMMATURE GRAN PERCENT AUTO 1 % (0-1); LYMPHOCYTES ABSOLUTE AUTO 1.99 K/mm3 (0.84-5.20); LYMPHOCYTES PERCENT AUTO 19 % (21-46); MONOCYTES ABSOLUTE AUTO 1.19 K/mm3 (0.16-1.47); MONOCYTES PERCENT AUTO 11 % (4-13); Mean Corpuscular HGB 29.3 pg (26.0-34.0); Mean Corpuscular HGB Conc 34.7 g/dL (31.5-36.5); Mean Corpuscular Volume 85 fL (80-100); Mean Platelet Volume 8.9 fL (9.1-12.4); NEUTROPHILS PERCENT AUTO 66 % (41-73); Platelet Count 295 K/mm3 (150-400); RDW Coefficient Variation 12.1 % (11.7-14.2); RDW Standard Deviation 37.2 fL (35.1-46.3); Red Blood Cell Count 4.33 M/mm3 (4.30-5.90); White Blood Cell Count 10.65 K/mm3 (4.00-11.30)
[2023-07-09 05:38] LABS: Bun/Creatinine Ratio 25.6 (12.0-20.0); Calcium, Blood 8.6 mg/dL (8.5-10.1); Creatinine, Blood 0.67 mg/dL (0.60-1.20); Potassium, Blood 4.1 mmol/L (3.5-5.5)
[2023-07-09 07:53] VITALS: BP 162/104
--- NOTE | 2023-07-09 11:04 | NUR ---
DRESSING CHANGE CHANGED PT'S DRESSING, APPLIED MUPRICON OINTMENT, 4X4 GAUZE, ABD, AND MORALES WRAP. SWELLING, REDNESS, AND PALE/YELLOW DISCHARGE AND SCANT BLOOD NOTED.
--- NOTE | 2023-07-09 11:18 | NUR ---
CALLED CALLED TO INFORM HIM THAT PT REFUSED AMLODIPINE THIS AM. PT STATED THAT IT MAKES HIM FEEL "FUNNY" AND HE WILL NOT TAKE THE SPECIFIC BRAND OF BP MED. I EDUCATED THE PT ON THE INDICATIONS AND S/SX OF AMLODIPINE AND BP MEDS IN GENERAL. PT IS AWARE THAT HIS BP IS ELEVATED AND DENIES SYMPTOMS.
[2023-07-09] MEDS ORDERED: AMLO5 PO (13:42)
[2023-07-09] MEDS ORDERED: VISBIOME 112.51 EACH PO (13:43)
[2023-07-09] MEDS ORDERED: CEFP200 PO (13:43)
--- NOTE | 2023-07-09 14:31 | NUR ---
DISCHARGE NOTE PT DISCHARGED AT APPROX 1435. PT PROVIDED WITH VERBAL AND WRITTEN INSTRUCTIONS AND REPORTED UNDERSTANDING. PT A&OX4, VSS, TOLERATING PO, VOIDING, AND AMB. BELONGINGS WERE RETURNED AND WAS ESCOURTED OUT TO THE PT ENTRANCE VIA W/C BY [facility].
== END 2023-07-09 14:28 | disposition home or self-care (01) | DRG 872 ==
LOC: ER 22:00 → MEDS 07-07 02:09 → ENPENDDIS 07-09 12:59 → MEDS 07-09 14:28
PROVIDERS: Emergency Medicine; Family Medicine; Physician Assistant; Student in an Organized Health Care Education/Training Program; ADMIT Internal Medicine
PROC: 0SJD3ZZ Inspection of Left Knee Joint, Percutaneous Approach (ICD-10-PCS; principal; 2023-07-06)
PROC: 3E03329 Introduction of Other Anti-infective into Peripheral Vein, Percutaneous Approach (ICD-10-PCS; 2023-07-09)
DX: A41.9 Sepsis, unspecified organism (principal); L03.116 Cellulitis of left lower limb; L02.416 Cutaneous abscess of left lower limb; M00.9 Pyogenic arthritis, unspecified; F17.210 Nicotine dependence, cigarettes, uncomplicated; J45.909 Unspecified asthma, uncomplicated; I10 Essential (primary) hypertension; B95.62 Methicillin resistant Staphylococcus aureus infection as the cause of diseases classified elsewhere; B95.0 Streptococcus, group A, as the cause of diseases classified elsewhere; F15.90 Other stimulant use, unspecified, uncomplicated; F12.90 Cannabis use, unspecified, uncomplicated; M25.462 Effusion, left knee; Z91.018 Allergy to other foods; Z91.048 Other nonmedicinal substance allergy status; Z79.2 Long term (current) use of antibiotics; Z79.52 Long term (current) use of systemic steroids; Z87.01 Personal history of pneumonia (recurrent); Z59.00 Homelessness unspecified; Z98.890 Other specified postprocedural states; Z71.6 Tobacco abuse counseling; Z86.19 Personal history of other infectious and parasitic diseases
CPT/HCPCS: 20611; 36415; 73701; 80048; 80053; 80202; 82565; 83605; 85025; 85027; 85651; 86140; 87040; 87070; 87075; 87077; 87147; 87186; 87205; 93005; 93010; 94640; 94664; 94760; 96365; 96375; 99285-25; A9270; J0696; J1170; J3370; J7030; J7050; Q9967

== ENCOUNTER 2024-06-29 10:47 | Emergency (ER) | payer OTHER ==
[~2024-06-29] VITALS: Ht 160 cm; Wt 68.0 kg
[~2024-06-29 10:47] MED LIST changes: +AMLO5 PO; +VISBIOME 112.51 EACH PO
[2024-06-29 11:32] VITALS: BP 169/109
== END 2024-06-29 13:22 | disposition home or self-care (01) ==
LOC: ER 10:47
DX: S00.91XA Abrasion of unspecified part of head, initial encounter (principal); S40.812A Abrasion of left upper arm, initial encounter; V13.4XXA Pedal cycle driver injured in collision with car, pick-up truck or van in traffic accident, initial encounter; R10.32 Left lower quadrant pain; M25.552 Pain in left hip; I10 Essential (primary) hypertension; J45.909 Unspecified asthma, uncomplicated; F17.210 Nicotine dependence, cigarettes, uncomplicated; Z91.018 Allergy to other foods; Z91.048 Other nonmedicinal substance allergy status; Z79.899 Other long term (current) drug therapy
CPT/HCPCS: 70450; 71260; 72125; 74177; Q9967

== ENCOUNTER 2024-11-18 11:53 | Emergency (ER) | payer OTHER ==
[~2024-11-18] VITALS: Ht 160 cm; Wt 68.0 kg
[2024-11-18 12:22] VITALS: BP 150/107
[2024-11-18 13:10] LABS: CORONAVIRUS COVID-19 AG Negative (NEGATIVE); INFLUENZA A AG Positive (NEGATIVE); INFLUENZA B AG Negative (NEGATIVE)
[2024-11-18] MEDS ORDERED: CefTRIAXone 500 MG Vial IM ONE (13:35)
[2024-11-18] MEDS ORDERED: Doxycycline Hyclate 100 MG TAB PO ONE (13:35)
[2024-11-18] MEDS ORDERED: Vibramycin100 MG PO (13:53)
== END 2024-11-18 15:36 | disposition home or self-care (01) ==
LOC: ER 11:53
PROVIDERS: Emergency Medicine
DX: J10.1 Influenza due to other identified influenza virus with other respiratory manifestations (principal); J44.89 Other specified chronic obstructive pulmonary disease; I10 Essential (primary) hypertension; F17.210 Nicotine dependence, cigarettes, uncomplicated; Z20.2 Contact with and (suspected) exposure to infections with a predominantly sexual mode of transmission; Z87.01 Personal history of pneumonia (recurrent); Z91.018 Allergy to other foods; Z91.048 Other nonmedicinal substance allergy status
CPT/HCPCS: 71046; 87428-QW; 96372; 99283-25; A9270; J0696

== ENCOUNTER → 2025-02-26 | Outpatient (CLI) | payer OTHER | LOC: LAB 13:27 → LAB SHORT 13:27 | DX: L03.113 Cellulitis of right upper limb (principal); L02.413 Cutaneous abscess of right upper limb ==